=== PATIENT | female | born 1945 | race Caucasian/White ===

== ENCOUNTER 2016-12-10 08:50 | Emergency (ER) | payer MEDICARE, OTHER ==
[2016-12-10 08:59] VITALS: BP 121/70
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
--- NOTE | 2016-12-10 09:44 | XRAY Preliminary Report ---
Exam: XR Knee 4 View LT IMPRESSION: 1. No fracture or dislocation 2. Severe tricompartmental osteoarthritis. Kellgren Renzo Grade 4. 3. Small effusion Kellgren and Renzo classification of osteoarthritis: Grade 0: no radiographic features of osteoarthritis are present Grade 1: doubtful joint space narrowing (JSN) and possible osteophytic lipping Grade 2: definite osteophytes and possible JSN on anteroposterior weight-bearing radiograph Grade 3: multiple osteophytes, definite JSN, sclerosis, possible bony deformity Grade 4: large osteophytes, marked JSN, severe sclerosis and definite bony deformity [facility] SITE ID: [id number]
--- NOTE | 2016-12-10 09:47 | XRAY Report ---
EXAM: LEFT KNEE RADIOGRAPHY EXAM DATE: 12/10/2016 09:33 AM. CLINICAL HISTORY: Fall medial tibial pain. COMPARISON: None. TECHNIQUE: 4 views. FINDINGS: Bones: Osteopenia. No fractures or bone lesions. Joints: Severe tricompartmental osteoarthritis with joint space loss and osteophytosis. Small effusio n. Soft Tissues: Normal. No soft tissue swelling. IMPRESSION: 1. No fracture or dislocation 2. Severe tricompartmental osteoarthritis. Kellgren Renzo Grade 4. 3. Small effusion Kellgren and Renzo classification of osteoarthritis: Grade 0: no radiographic features of osteoarthritis are present Grade 1: doubtful joint space narrowing (JSN) and possible osteophytic lipping Grade 2: definite osteophytes and possible JSN on anteroposterior weight-bearing radiograph Grade 3: multiple osteophytes, definite JSN, sclerosis, possible bony deformity Grade 4: large osteophytes, marked JSN, severe sclerosis and definite bony deformity [facility] Referring Provider Line: [phone] SITE ID: [id number]
== END 2016-12-10 10:06 | disposition home or self-care (01) ==
LOC: ED 08:50
DX: S80.02XA Contusion of left knee, initial encounter (principal); W17.89XA Other fall from one level to another, initial encounter; Y92.318 Other athletic court as the place of occurrence of the external cause; M17.12 Unilateral primary osteoarthritis, left knee
CPT/HCPCS: 99281; 99283

== ENCOUNTER 2018-10-11 09:59 | Outpatient (CLI) | payer MEDICARE, OTHER ==
[2018-10-11 10:24] LABS: BASOPHILS # (AUTO) 0.1 10^3/uL (0.0-0.1); EOSINOPHILS # (AUTO) 0.2 10^3/uL (0.0-0.7); EOSINOPHILS % (AUTO) 2.9 %; HGB - HEMOGLOBIN 13.5 g/dL (12.0-16.0); LYMPHOCYTES # (AUTO) 2.1 10^3/uL (1.5-3.5); LYMPHOCYTES % (AUTO) 33.8 %; MEAN CORPUSCULAR HEMOGLOBIN 27.1 pg (27.0-31.0); MEAN CORPUSCULAR HGB CONC 31.6 g/dL (32.0-36.0); MEAN CORPUSCULAR VOLUME 85.7 fL (81.0-99.0); MONOCYTES # (AUTO) 0.5 10^3/uL (0.0-1.0); MONOCYTES % (AUTO) 8.3 %; NEUTROPHILS # (AUTO) 3.3 10^3/uL (1.5-6.6); NEUTROPHILS % (AUTO) 53.3 %; PLT - PLATELET COUNT 331 10^3/uL (130-450); RED BLOOD COUNT 4.98 10^6/uL (4.20-5.40); RED CELL DISTRIBUTION WIDTH 14.1 % (12.0-15.0); WHITE BLOOD COUNT 6.2 x10^3/uL (4.8-10.8)
[2018-10-11 10:40] LABS: ALBUMIN 4.4 g/dL (3.2-5.5); ALBUMIN/GLOBULIN RATIO 1.7 (1.0-2.2); ALKALINE PHOSPHATASE 80 IU/L (42-121); ALT ALANINE AMINOTRANSFERASE 20 IU/L (10-60); AST ASPARTATE AMINOTRANSFERASE 21 IU/L (10-42); BILIRUBIN,TOTAL 0.8 mg/dL (0.2-1.0); BUN - BLOOD UREA NITROGEN 16 mg/dL (6-20); CALCIUM 9.8 mg/dL (8.5-10.3); CARBON DIOXIDE - CO2 29 mmol/L (21-32); CHLORIDE 102 mmol/L (101-111); CHOLESTEROL 282 mg/dL; CREATININE 0.8 mg/dL (0.4-1.0); GFR - MDRD 71 (>89); GLUCOSE 102 mg/dL (70-100); HDL CHOLESTEROL 47 mg/dL; LDL CHOLESTEROL,CALCULATED 200 mg/dL; LDL/HDL RATIO 4.3 (<4.4); SODIUM 139 mmol/L (135-145); VLDL CHOLESTEROL 35 mg/dL
== END 2018-10-11 10:00 | disposition home or self-care (01) ==
LOC: LAB 09:59
PROVIDERS: ATTEND Family Medicine
DX: E78.5 Hyperlipidemia, unspecified (principal); I49.1 Atrial premature depolarization
CPT/HCPCS: 36415; 80053; 80061; 83721; 84443; 85025

== ENCOUNTER 2019-08-09 10:00 | Outpatient (CLI) | payer MEDICARE, OTHER | END 2019-08-09 23:59 | disposition home or self-care (01) | LOC: LAB.R 10:00 | PROVIDERS: ATTEND Family Medicine | DX: R35.0 Frequency of micturition (principal) | CPT/HCPCS: 87086; 87181 ==

== ENCOUNTER 2019-09-03 09:42 | Outpatient (CLI) | payer MEDICARE, OTHER ==
[2019-09-03 12:26] LABS: BASOPHILS # (AUTO) 0.1 10^3/uL (0.0-0.1); BASOPHILS % (AUTO) 1.2 %; EOSINOPHILS # (AUTO) 0.2 10^3/uL (0.0-0.7); EOSINOPHILS % (AUTO) 2.9 %; HGB - HEMOGLOBIN 14.2 g/dL (12.0-16.0); LYMPHOCYTES # (AUTO) 1.9 10^3/uL (1.5-3.5); LYMPHOCYTES % (AUTO) 33.7 %; MEAN CORPUSCULAR HEMOGLOBIN 28.6 pg (27.0-31.0); MEAN CORPUSCULAR HGB CONC 32.3 g/dL (32.0-36.0); MEAN CORPUSCULAR VOLUME 88.3 fL (81.0-99.0); MONOCYTES # (AUTO) 0.4 10^3/uL (0.0-1.0); MONOCYTES % (AUTO) 7.5 %; NEUTROPHILS # (AUTO) 3.1 10^3/uL (1.5-6.6); NEUTROPHILS % (AUTO) 54.3 %; PLT - PLATELET COUNT 324 10^3/uL (130-450); RED BLOOD COUNT 4.97 10^6/uL (4.20-5.40); RED CELL DISTRIBUTION WIDTH 13.7 % (12.0-15.0); WHITE BLOOD COUNT 5.6 x10^3/uL (4.8-10.8)
[2019-09-03 12:48] LABS: HB2 TOTAL 14.3 g/dL; HEMOGLOBIN A1C 0.57 g/dL; HEMOGLOBIN A1C % 5.8 % (4.6-6.2)
[2019-09-03 12:53] LABS: ALBUMIN 4.4 g/dL (3.2-5.5); ALKALINE PHOSPHATASE 81 IU/L (42-121); ALT ALANINE AMINOTRANSFERASE 21 IU/L (10-60); AST ASPARTATE AMINOTRANSFERASE 22 IU/L (10-42); BILIRUBIN,TOTAL 0.8 mg/dL (0.2-1.0); BUN - BLOOD UREA NITROGEN 18 mg/dL (6-20); CALCIUM 9.9 mg/dL (8.5-10.3); CARBON DIOXIDE - CO2 28 mmol/L (21-32); CHLORIDE 101 mmol/L (101-111); CHOL/HDL RATIO 5.5 (<4.4); CHOLESTEROL 290 mg/dL; CREATININE 0.8 mg/dL (0.4-1.0); GLUCOSE 106 mg/dL (70-100); HDL CHOLESTEROL 53 mg/dL; LDL CHOLESTEROL,CALCULATED 211 mg/dL; SODIUM 141 mmol/L (135-145); TOTAL PROTEIN 6.6 g/dL (6.7-8.2); VLDL CHOLESTEROL 26 mg/dL
== END 2019-09-03 23:59 | disposition home or self-care (01) ==
LOC: LAB.WCP 09:42
PROVIDERS: ATTEND Family Medicine
DX: R73.9 Hyperglycemia, unspecified (principal); E78.5 Hyperlipidemia, unspecified; R35.0 Frequency of micturition; I49.1 Atrial premature depolarization
CPT/HCPCS: 36415; 80053; 80061; 83036; 83721; 84443; 85025; 87086

== ENCOUNTER 2020-07-04 08:00 | Outpatient (CLI) | payer MEDICARE, OTHER ==
[2020-07-04 13:05] LABS: BASOPHILS # (AUTO) 0.1 10^3/uL (0.0-0.1); BASOPHILS % (AUTO) 0.8 %; EOSINOPHILS # (AUTO) 0.2 10^3/uL (0.0-0.7); HCT - HEMATOCRIT 44.5 % (37.0-47.0); HGB - HEMOGLOBIN 13.9 g/dL (12.0-16.0); LYMPHOCYTES # (AUTO) 1.9 10^3/uL (1.5-3.5); LYMPHOCYTES % (AUTO) 30.5 %; MEAN CORPUSCULAR HGB CONC 31.2 g/dL (32.0-36.0); MEAN CORPUSCULAR VOLUME 89.5 fL (81.0-99.0); MEAN PLATELET VOLUME 9.6 fL (7.9-10.8); MONOCYTES # (AUTO) 0.6 10^3/uL (0.0-1.0); MONOCYTES % (AUTO) 9.3 %; NEUTROPHILS # (AUTO) 3.5 10^3/uL (1.5-6.6); NEUTROPHILS % (AUTO) 55.9 %; PLT - PLATELET COUNT 333 10^3/uL (130-450); RED BLOOD COUNT 4.97 10^6/uL (4.20-5.40); RED CELL DISTRIBUTION WIDTH 13.6 % (12.0-15.0); WHITE BLOOD COUNT 6.3 x10^3/uL (4.8-10.8)
[2020-07-04 13:28] LABS: ALBUMIN 4.2 g/dL (3.2-5.5); ALBUMIN/GLOBULIN RATIO 1.8 (1.0-2.2); ALKALINE PHOSPHATASE 75 IU/L (42-121); ALT ALANINE AMINOTRANSFERASE 23 IU/L (10-60); AST ASPARTATE AMINOTRANSFERASE 24 IU/L (10-42); BILIRUBIN,TOTAL 0.7 mg/dL (0.2-1.0); BUN - BLOOD UREA NITROGEN 16 mg/dL (6-20); CALCIUM 9.6 mg/dL (8.5-10.3); CARBON DIOXIDE - CO2 27 mmol/L (21-32); CHLORIDE 107 mmol/L (101-111); CHOLESTEROL 204 mg/dL; CREATININE 0.8 mg/dL (0.4-1.0); GFR - MDRD 70 (>89); GLUCOSE 109 mg/dL (70-100); HDL CHOLESTEROL 51 mg/dL; LDL CHOLESTEROL,CALCULATED 133 mg/dL; LDL/HDL RATIO 2.6 (<4.4); SODIUM 142 mmol/L (135-145); TOTAL PROTEIN 6.5 g/dL (6.7-8.2); TRIGLYCERIDES 101 mg/dL; VLDL CHOLESTEROL 20 mg/dL
[2020-07-04 13:29] LABS: THYROID STIMULATING HORMONE 1.48 uIU/mL (0.34-5.60)
[2020-07-04 13:31] LABS: ESTIMATED AVERAGE GLUCOSE 131 mg/dL (70-100); HEMOGLOBIN A1c% 6.2 % (4.27-6.07)
== END 2020-07-04 23:59 | disposition home or self-care (01) ==
LOC: LAB.WCP 08:00
PROVIDERS: ATTEND Family Medicine
DX: E78.49 Other hyperlipidemia (principal); R73.9 Hyperglycemia, unspecified; I49.1 Atrial premature depolarization
CPT/HCPCS: 36415; 80053; 80061; 83036; 83721; 84443; 85025

== ENCOUNTER 2020-07-09 08:00 | Outpatient (CLI) | payer MEDICARE, OTHER | END 2020-07-09 23:59 | disposition home or self-care (01) | LOC: LAB.WCP 08:00 | PROVIDERS: ATTEND Family Medicine | DX: R35.0 Frequency of micturition (principal) | CPT/HCPCS: 87086 ==

== ENCOUNTER 2020-09-13 09:39 | Emergency (ER) | payer MEDICARE, OTHER ==
[2020-09-13] MEDS ORDERED: KETOROLAC 60 MG/2 ML VIAL IM STA (10:21)
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
--- NOTE | 2020-09-13 11:53 | XRAY Report ---
PROCEDURE: Shoulder 3 View RT INDICATIONS: fall proximal humerus pain TECHNIQUE: 3 views of the shoulder were acquired. COMPARISON: None. FINDINGS: Bones: Comminuted, displaced fracture of the humeral head and neck extending to the articular surface with associated pseudosubluxation. No suspicious bony lesions. Visualized ribs appear intact. Soft tissues: No suspicious soft tissue calcifications. Pseudosubluxation secondary to shoulder comfort nt effusion. IMPRESSION: Comminuted, displaced fracture of the humeral head and neck with associated shoulder comfort nt effusion. Reviewed by: Stephan Heredia MD on 09/13/2020 10:51 AM ESTEE Approved by: Stephan Heredia MD on 09/13/2020 10:51 AM ESTEE Station ID: [id number]
--- NOTE | 2020-09-13 11:54 | XRAY Report ---
PROCEDURE: Humerus RT INDICATIONS: fall proximal pain TECHNIQUE: 2 views of the humerus were acquired. COMPARISON: Right shoulder from the same date FINDINGS: Bones: Comminuted displaced fracture of the humeral head and neck. No distal humeral fractures. No la spicious bony lesions. Soft tissues: No suspicious soft tissue calcifications. IMPRESSION: Comminuted, displaced fracture of the humeral head and neck. Reviewed by: Stephan Heredia MD on 09/13/2020 10:52 AM ESTEE Approved by: Stephan Heredia MD on 09/13/2020 10:52 AM ESTEE Station ID: [id number]
[2020-09-13 12:13] VITALS: BP 144/60
== END 2020-09-13 12:37 | disposition home or self-care (01) ==
LOC: ED 09:39
DX: S42.291A Other displaced fracture of upper end of right humerus, initial encounter for closed fracture (principal); V19.88XA Pedal cyclist (driver) (passenger) injured in other specified transport accidents, initial encounter; Y93.55 Activity, bike riding; Y92.008 Other place in unspecified non-institutional (private) residence as the place of occurrence of the external cause
CPT/HCPCS: 96372; 99283; 99284

== ENCOUNTER 2021-08-29 09:17 | Emergency (ER) | payer MEDICARE, OTHER ==
[2021-08-29 09:28] VITALS: BP 112/64
--- NOTE | 2021-08-29 09:48 | ED Physician Documentation ---
PD HPI LOWER EXT INJURY - Stated complaint Stated Complaint: LT HIP PX - Chief complaint Chief Complaint: Ext Problem - History obtained from History obtained from: Patient - History of Present Illness PD HPI LOW EXT INJURY LOCATION: Left, Hip Type of injury: Twist (playing golf) [place] occurred: [place] Timing - onset: How many days ago (3) Timing - duration: Days (3) Timing - details: Gradual onset, Still present Improved by: Rest Worsened by: Moving, Palpating, Other (weight bearing) Associated symptoms: No: Weakness, Numbness, Tingling, Swelling, Discolored Similar symptoms before: Diagnosis (stress fracture of hip seen on CT in [place]) Recently seen: Not recently seen - Additional information Additional information: Pat Tiwari is a 75-year-old female who plays golf regularly especially when she is down in [place]. About a year ago year and a half ago she developed some pain in her hip and was diagnosed with a stress fracture to the hip and she laid off golf for a while it where is it improved and she is returned to playing golf she played golf all winter this year when she returned to [facility] she went out golfing and found that she developed the same pain she had previously. She has come here today for evaluation. She has a tournament she wants to do in 2 weeks and she is not wanting to do that now because of this pain. She does not feel she needs pain medication. She is able to ambulate without much of a limp. Review of Systems Constitutional: denies: Fever Ears: denies: Ear pain Nose: denies: Congestion Throat: denies: Sore throat Respiratory: denies: Cough GI: denies: Vomiting, Diarrhea : denies: Dysuria, Frequency PD PAST MEDICAL HISTORY - Past Medical History Past Medical History: Yes Cardiovascular: High cholesterol Respiratory: None Neuro: None Endocrine/Autoimmune: None GI: None LAYOUT MAN: None : None HEENT: None Psych: None Musculoskeletal: None Derm: None Other Past Medical History: stress fracture left hip - Past Surgical History Past Surgical History: Yes General: Appendectomy Ortho: Arthroscopic surgery /LAYOUT MAN: section - Present Medications Home Medications: Ambulatory Orders Medication Instructions Recorded Confirmed Rosuvastatin Calcium [Crestor] 5 mg PO DAILY 08/29/21 08/29/21 - Allergies Allergies/Adverse Reactions: Allergies Allergy/AdvReac Type Severity Reaction Status Date / Time No Known Drug Allergies Allergy Verified 08/29/21 09:33 - Social History Does the pt smoke?: No Smoking Status: Never smoker Does the pt drink ETOH?: Yes Does the pt have substance abuse?: No - Immunizations Immunizations are current?: Yes PD ED PE NORMAL - Vitals Vital signs reviewed: Yes (normal ) - General General: Alert and oriented X 3, No acute distress, Well developed/nourished - HEENT HEENT: Atraumatic, PERRL, EOMI - Respiratory Respiratory: No respiratory distress - Back Back: No CVA TTP, No spinal TTP - Derm Derm: Normal color, Warm and dry, No rash - Extremities Extremities: No deformity, No tenderness to palpate, Normal ROM s pain, No edema - Neuro Neuro: Alert and oriented X 3, buncher operator 2-12 intact, No motor deficit, No sensory deficit, Normal speech Eye Opening: Spontaneous Motor: Obeys Commands Verbal: Oriented GCS Score: 15 - Psych Psych: Normal mood, Normal affect Results - Vitals Vitals: Vital Signs - 24 hr 08/29/21 09:25 Temperature 36.5 C Heart Rate 79 Respiratory 16 Rate Blood Pressure 112/64 O2 Saturation 98 Oxygen O2 Source Room air - Rads (name of study) CT hip Radiology: Prelim report reviewed (Impression: 1. Left hip degenerative osteoarthritis without evidence of fracture or dislocation.), EMP read indepedently, See rad report PD MEDICAL DECISION MAKING - ED course Complexity details: reviewed results, re-evaluated patient, considered differential, d/w patient ED course: 75-year-old female with osteoarthritis of the left hip has had an increase in her pain playing golf she does look like she has some previously fractured fragments along the acetabulum and I suspect she has alan these loose playing golf again. I have shared this with the patient and have asked her to follow-up with the orthopedic surgeon.She declines pain medication. Departure - Departure Disposition: 01 Home, Self Care Clinical Impression: Osteoarthritis of left hip Qualifiers: Osteoarthritis type: post-traumatic Qualified Code(s): M16.52 - Unilateral post-traumatic osteoarthritis, left hip Condition: Stable Instructions: Osteoarthritis Other Tx, ED Degenerative Joint Disease Follow-Up: Gauri Nesbitt ARNP [Primary Care Provider] - Armin Andrea MD [Provider Admit Priv/Credential] - Comments: Pat today looks like you have some arthritis to your left hip. You may have pain with golfing that can last for days or weeks. Follow up with the orthopedic doctor for consultation of possible surgical repair. Discharge Date/Time: 08/29/21 11:17
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
== END 2021-08-29 11:17 | disposition home or self-care (01) ==
LOC: ED 09:17
DX: M16.52 Unilateral post-traumatic osteoarthritis, left hip (principal)
CPT/HCPCS: 99283; 99284

== ENCOUNTER 2022-08-26 10:52 | Emergency (ER) | payer MEDICARE, OTHER ==
--- NOTE | 2022-08-26 11:30 | XRAY Report ---
PROCEDURE: Chest 1 View X-Ray INDICATIONS: cough TECHNIQUE: One view of the chest was acquired. COMPARISON: Chest x-ray 08/20/2015 FINDINGS: Surgical changes and devices: None. Lungs and pleura: Peripheral left upper lobe opacity is present with appearance of air bronchograms. Mediastinum: Mediastinal contours appear normal. Heart size is normal. Bones and chest wall: No suspicious bony lesions. Overlying soft tissues appear unremarkable. Def ormity of the right humeral head is present consistent with remote fracture. IMPRESSION: Left upper lobe opacity with appearance of air bronchograms suggestive of pneumonia. However, if clin ical correlation is not in alignment with infection/inflammation, mass lesion of other etiologies inc luding malignancy should be considered with CT for follow-up. Otherwise, recommend chest x-ray follow -up after appropriate therapy to document resolution. Reviewed by: Danika Gonzalez MD on 08/26/2022 11:29 AM PDT Approved by: Danika Gonzalez MD on 08/26/2022 11:29 AM PDT Station ID: [id number]
--- NOTE | 2022-08-26 11:31 | ED Physician Documentation ---
PD HPI CHEST PAIN - Stated complaint Stated Complaint: DIZZINESS - Chief complaint Chief Complaint: Fever - History obtained from History obtained from: Patient, Family - History of Present Illness Timing - onset: How many days ago (3) Timing - onset during: Rest Timing - duration: Days (3) Timing - details: Gradual onset, Still present Quality: Dull, Pain Location: Left chest Improved by: Rest Worsened by: Inspiration Associated symptoms: Feeling faint / dizzy, Cough. No: Shortness of air, Diaphoresis, Nausea, Vomiting, General Weakness, Palpitations Similar symptoms before: Has not had sx before Recently seen: Not recently seen - Additional information Additional information: 76-year-old Pat Tiwari presents to the emergency department with the pain up near her shoulder that is worse if she takes a deep breath or palpates the area. She has not had this previously. She feels a bit rundown. She has a slight cough no fever but she has had chills she is brought here today by her daughter. Review of Systems Constitutional: reports: Chills. denies: Fever Eyes: denies: Decreased vision Ears: denies: Ear pain Nose: reports: Rhinorrhea / runny nose, Congestion Throat: denies: Sore throat Cardiac: reports: Chest pain / pressure. denies: Palpitations Respiratory: reports: Cough. denies: Dyspnea, Hemoptysis, Wheezing GI: denies: Abdominal Pain, Nausea, Vomiting, Constipation, Diarrhea : denies: Dysuria, Frequency Skin: denies: Rash Musculoskeletal: denies: Neck pain, Back pain, Extremity pain Neurologic: denies: Generalized weakness, Focal weakness, Numbness PD PAST MEDICAL HISTORY - Past Medical History Past Medical History: Yes Cardiovascular: High cholesterol Respiratory: None Neuro: None Endocrine/Autoimmune: None GI: None FOUNDING PARTNER: None : None HEENT: None Psych: None Musculoskeletal: None Derm: None - Past Surgical History Past Surgical History: Yes General: Appendectomy Ortho: Arthroscopic surgery /FOUNDING PARTNER: section - Present Medications Home Medications: Ambulatory Orders Medication Instructions Recorded Confirmed Rosuvastatin Calcium [Crestor] 5 mg PO DAILY 08/29/21 09/23/21 HYDROcod/ACETAM 5/325 [[place] 5/325] 1 - 2 tab PO Q6H PRN #15 tablet 09/23/21 Ibuprofen [Motrin] 800 mg PO DAILY 09/23/21 09/23/21 Amox/Clav 875/125 [Augmentin] 1 each PO Q12H #20 tablet 08/26/22 Azithromycin [Zithromax] 250 mg PO DAILY #6 tablet 08/26/22 - Allergies Allergies/Adverse Reactions: Allergies Allergy/AdvReac Type Severity Reaction Status Date / Time No Known Drug Allergies Allergy Verified 08/26/22 11:04 - Social History Does the pt smoke?: No Smoking Status: Never smoker Does the pt drink ETOH?: Yes Does the pt have substance abuse?: No - Immunizations Immunizations are current?: Yes PD ED PE NORMAL - Vitals Vital signs reviewed: Yes (wide pulse pressure) - General General: Alert and oriented X 3, No acute distress, Well developed/nourished - HEENT HEENT: Atraumatic, PERRL, EOMI, Ears normal, Moist mucous membranes, Pharynx benign - Neck Neck: Supple, no meningeal sign, No bony TTP - Cardiac Cardiac: RRR, No murmur - Respiratory Respiratory: No respiratory distress, Other (subtle rhonchi in left upper lobe only) - Abdomen Abdomen: Soft, Non tender - Back Back: No CVA TTP, No spinal TTP - Derm Derm: Normal color, Warm and dry, No rash - Extremities Extremities: No deformity, No edema - Neuro Neuro: Alert and oriented X 3, child and adolescent psychiatrist 2-12 intact, No motor deficit, No sensory deficit, Normal speech Eye Opening: Spontaneous Motor: Obeys Commands Verbal: Oriented GCS Score: 15 - Psych Psych: Normal mood, Normal affect Results - Vitals Vitals: Vital Signs - 24 hr 08/26/22 08/26/22 11:00 13:10 Temperature 37.4 C 37.3 C Heart Rate 93 88 Respiratory 23 21 Rate Blood Pressure 125/59 L 115/59 L O2 Saturation 94 95 Oxygen O2 Source Room air - Labs Labs: Laboratory Tests 08/26/22 08/26/22 08/26/22 11:40 11:40 11:40 WBC 14.5 H RBC 4.17 L Hgb 11.7 L Hct 35.2 L MCV 84.4 MCH 28.1 MCHC 33.2 RDW 12.4 Plt Count 332 MPV 9.2 Neut # (Auto) 12.2 H Lymph # (Auto) 1.0 L Walsh # (Auto) 1.1 H Eos # (Auto) 0.1 Baso # (Auto) 0.1 Absolute Nucleated RBC 0.00 Nucleated RBC % 0.0 Sodium 130 L Potassium 4.1 Chloride 99 L Carbon Dioxide 22 Anion Gap 9.0 BUN 21 H Creatinine 0.9 Estimated GFR (MDRD) 61 L Glucose 152 H Lactic Acid 1.1 Calcium 9.0 Total Bilirubin 0.9 AST 23 ALT 16 Alkaline Phosphatase 66 Total Protein 7.0 Albumin 3.4 Globulin 3.6 Albumin/Globulin Ratio 0.9 L Lipase 26 - Rads (name of study) chest Relevant Findings:: Prelim report reviewed (Impression: Left upper lobe opacity with appearance of air bronchograms suggestive of pneumonia. However, if clinical correlation is not in alignment with the infection/inflammation, mass lesion of other etiologies including malignancy should be considered with follow-up CT scan otherwise, recommen), EMP independent interpretation of test PD Medical Decision Making - ED course Complexity details: reviewed results, re-evaluated patient, considered differential, d/w patient, d/w family Reviewed Lab Results: We reviewed a complete blood count showing a white blood cell count elevated at 14.5 thousand hemoglobin and hematocrit were mildly depressed at 11.7 and 35.2 these numbers are both down from patient's previous 2 years ago with a hemoglobin of 13.9 and hematocrit of 44.5 patient's electrolytes show a low sodium BUN is elevated 21 liver function is normal lactate is 1.1 chest x-ray was reviewed showing a left upper lobe infiltrate consistent with where the patient has pain and rhonchi My interpretation of these laboratory results indicate an infection and the physical exam findings correlate with the findings on chest x-ray. The x-ray appearance is somewhat atypical and will require follow-up. ED course: The patient is treated for pneumonia with an IM injection of Rocephin and we will place her on a course of azithromycin and Augmentin. Departure - Departure Disposition: 01 Home, Self Care Clinical Impression: Pneumonia Qualifiers: Pneumonia type: due to unspecified organism Laterality: left Lung location: upper lobe of lung Qualified Code(s): J18.9 - Pneumonia, unspecified organism Condition: Stable Instructions: ED Pneumonia Adult Follow-Up: Gauri Nesbitt ARNP [Primary Care Provider] - Prescriptions: Amox/Clav 875/125 [Augmentin] 1 each PO Q12H #20 tablet Azithromycin [Zithromax] 250 mg PO DAILY #6 tablet Comments: Pat, today looks like the pain you are having in your left shoulder is related to a pneumonia. We have been on treatment today with ceftriaxone which is a powerful antibiotic you are given by vein. My recommendation is to take both azithromycin and Augmentin and I have E scribed these 2 antibiotics to the community pharmacy here in [place]. Our expectation with treatment is slow and steady improvement in your energy level, improvement in the shoulder pain and resolution of your cough. My recommendation is to reduce your level of activity for at least 1 week. When you regain your strength resume your normal activities. The radiologist has recommended a follow-up chest x-ray to assure resolution of the findings on chest x-ray. Follow-up with your primary care doctor for an x-ray within the month. Discharge Date/Time: 08/26/22 13:10
[2022-08-26] MEDS ORDERED: cefTRIAXone 1 GM in SODIUM CHLORIDE 0.9% MINIBAG 100 ML IV STA (11:32)
[2022-08-26 11:48] LABS: BASOPHILS # (AUTO) 0.1 10^3/uL (0.0-0.1); BASOPHILS % (AUTO) 0.5 %; EOSINOPHILS # (AUTO) 0.1 10^3/uL (0.0-0.7); EOSINOPHILS % (AUTO) 0.6 %; HCT - HEMATOCRIT 35.2 % (37.0-47.0); HGB - HEMOGLOBIN 11.7 g/dL (12.0-16.0); MEAN CORPUSCULAR HEMOGLOBIN 28.1 pg (27.0-31.0); MEAN CORPUSCULAR HGB CONC 33.2 g/dL (32.0-36.0); MEAN CORPUSCULAR VOLUME 84.4 fL (81.0-99.0); MEAN PLATELET VOLUME 9.2 fL (7.9-10.8); MONOCYTES # (AUTO) 1.1 10^3/uL (0.0-1.0); MONOCYTES % (AUTO) 7.4 %; NEUTROPHILS # (AUTO) 12.2 10^3/uL (1.5-6.6); NEUTROPHILS % (AUTO) 83.9 %; PLT - PLATELET COUNT 332 10^3/uL (130-450); RED BLOOD COUNT 4.17 10^6/uL (4.20-5.40); RED CELL DISTRIBUTION WIDTH 12.4 % (12.0-15.0); WHITE BLOOD COUNT 14.5 x10^3/uL (4.8-10.8)
[2022-08-26 12:06] LABS: ALBUMIN 3.4 g/dL (3.2-5.5); ALBUMIN/GLOBULIN RATIO 0.9 (1.0-2.2); BILIRUBIN,TOTAL 0.9 mg/dL (0.2-1.0); CREATININE 0.9 mg/dL (0.4-1.0); POTASSIUM 4.1 mmol/L (3.5-5.0)
[2022-08-26 13:14] VITALS: BP 115/59
== END 2022-08-26 13:10 | disposition home or self-care (01) ==
LOC: ED 10:52
DX: J18.9 Pneumonia, unspecified organism (principal)
CPT/HCPCS: 36415; 80053; 83605; 83690; 85025; 87040; 96365; 99284

== ENCOUNTER 2022-09-09 06:51 | Outpatient (CLI) | payer MEDICARE, OTHER ==
--- NOTE | 2022-09-09 08:53 | XRAY Report ---
PROCEDURE: Chest 2 View X-Ray INDICATIONS: CHEST XRAY,ABNORMAL/PNEUMONIA TECHNIQUE: 2 views of the chest were acquired. COMPARISON: None. FINDINGS: Surgical changes and devices: None. Lungs and pleura: No pleural effusions or pneumothorax. Masslike consolidation in left upper to midl sally field is again seen and decreased in size compared to previous study. No new area of abnormal air space opacity is seen. Mediastinum: Mediastinal contours appear normal. Heart size is normal. Bones and chest wall: No suspicious bony lesions. Overlying soft tissues appear unremarkable. IMPRESSION: Finding is suggestive of resolving left upper lobe infiltrate. Continued follow-up until resolution i s recommended. Reviewed by: Eliezer Costa MD on 09/09/2022 8:51 AM PDT Approved by: Eliezer Costa MD on 09/09/2022 8:51 AM PDT Station ID: [id number]
== END 2022-09-09 06:52 | disposition home or self-care (01) ==
LOC: DI 06:51
PROVIDERS: ATTEND Nurse Practitioner Family
DX: R91.8 Other nonspecific abnormal finding of lung field (principal); J18.9 Pneumonia, unspecified organism

== ENCOUNTER 2022-12-13 08:10 | Outpatient (CLI) | payer MEDICARE, OTHER ==
[2022-12-13 08:28] LABS: BASOPHILS # (AUTO) 0.1 10^3/uL (0.0-0.1); BASOPHILS % (AUTO) 1.1 %; EOSINOPHILS # (AUTO) 0.2 10^3/uL (0.0-0.7); EOSINOPHILS % (AUTO) 3.6 %; HCT - HEMATOCRIT 43.2 % (37.0-47.0); HGB - HEMOGLOBIN 13.9 g/dL (12.0-16.0); LYMPHOCYTES # (AUTO) 1.8 10^3/uL (1.5-3.5); LYMPHOCYTES % (AUTO) 32.7 %; MEAN CORPUSCULAR HGB CONC 32.2 g/dL (32.0-36.0); MEAN CORPUSCULAR VOLUME 86.9 fL (81.0-99.0); MEAN PLATELET VOLUME 9.2 fL (7.9-10.8); MONOCYTES # (AUTO) 0.5 10^3/uL (0.0-1.0); MONOCYTES % (AUTO) 8.4 %; NEUTROPHILS % (AUTO) 53.8 %; PLT - PLATELET COUNT 279 10^3/uL (130-450); RED BLOOD COUNT 4.97 10^6/uL (4.20-5.40); RED CELL DISTRIBUTION WIDTH 13.3 % (12.0-15.0); WHITE BLOOD COUNT 5.6 x10^3/uL (4.8-10.8)
[2022-12-13 08:47] LABS: ALBUMIN 4.5 g/dL (3.2-5.5); ALBUMIN/GLOBULIN RATIO 2.3 (1.0-2.2); ALKALINE PHOSPHATASE 66 IU/L (42-121); ALT ALANINE AMINOTRANSFERASE 21 IU/L (10-60); AST ASPARTATE AMINOTRANSFERASE 21 IU/L (10-42); BILIRUBIN,TOTAL 0.8 mg/dL (0.2-1.0); BUN - BLOOD UREA NITROGEN 19 mg/dL (6-20); CALCIUM 9.9 mg/dL (8.5-10.3); CARBON DIOXIDE - CO2 31 mmol/L (21-32); CHLORIDE 104 mmol/L (101-111); CHOL/HDL RATIO 4.9 (<4.4); CHOLESTEROL 210 mg/dL; CREATININE 0.9 mg/dL (0.6-1.3); GFR - MDRD 61 (>89); GLUCOSE 128 mg/dL (74-104); HDL CHOLESTEROL 43 mg/dL; LDL CHOLESTEROL,CALCULATED 131 mg/dL; POTASSIUM 4.1 mmol/L (3.5-4.5); SODIUM 140 mmol/L (135-145); TOTAL PROTEIN 6.5 g/dL (6.4-8.9); TRIGLYCERIDES 182 mg/dL (48-352); VLDL CHOLESTEROL 36 mg/dL
== END 2022-12-13 08:11 | disposition home or self-care (01) ==
LOC: LAB 08:10
PROVIDERS: ATTEND Nurse Practitioner Family
DX: I49.1 Atrial premature depolarization (principal); M81.0 Age-related osteoporosis without current pathological fracture; E78.49 Other hyperlipidemia; E55.9 Vitamin D deficiency, unspecified; Z79.899 Other long term (current) drug therapy
CPT/HCPCS: 36415; 80053; 80061; 82306; 83721; 85025

== ENCOUNTER 2023-09-01 09:49 | Outpatient (CLI) | payer MEDICARE, OTHER ==
--- NOTE | 2023-09-01 16:14 | DEXA Report ---
PROCEDURE: Dexa Spine and/or Hip INDICATIONS: POST MENOPAUSAL TECHNIQUE: Dual energy x-ray absorptiometry (DXA) was performed on a [employer] System. Regions measur ed are the AP Spine, femoral neck, and if needed forearm. COMPARISON: None FINDINGS: Lumbar Spine: Bone Mineral Density: 1.174 g/cm/cm,T score: 0.0. Left Femoral Neck: Bone Mineral Density: 0.773 g/cm/cm, T score: -1.9. Left Hip: Bone Mineral Density: 0.833 g/cm/cm,T score: -1.4. (T score greater or equal to -1.0: NORMAL) (T score from -1.1 to -2.4: OSTEOPENIA) (T score less than or equal to -2.5 to: OSTEOPOROSIS) Impression: By WHO criteria, this patient has low bone density (osteopenia). Patients with diagnosis of osteoporosis or osteopenia should have regular bone mineral density assess ment. For those eligible for Medicare, routine testing is allowed once every 2 years. Testing frequ ency can be increased for patients who have rapidly progressing disease or for those who are receivin g medical therapy to restore bone mass. Reviewed by: Eliezer Costa MD on 09/01/2023 4:13 PM PDT Approved by: Eliezer Costa MD on 09/01/2023 4:13 PM PDT Station ID: [id number]
== END 2023-09-01 09:50 | disposition home or self-care (01) ==
LOC: DI 09:49
PROVIDERS: ATTEND Nurse Practitioner Family
DX: M85.89 Other specified disorders of bone density and structure, multiple sites (principal); Z78.0 Asymptomatic menopausal state

== ENCOUNTER 2023-11-11 11:10 | Emergency (ER) | payer MEDICARE, OTHER ==
--- NOTE | 2023-11-11 11:29 | ED Physician Documentation ---
PD HPI ABD PAIN - Stated complaint Stated Complaint: ABD PX - Chief complaint Chief Complaint: Abd Pain - Additional information Additional information: 77-year-old female with history of appendectomy and multiple C-sections with mild cognitive impairment, daughter is at bedside to help with history and physical. Patient and daughter report that patient has been having abdominal pain on and off for the last 6 weeks last 2 to 3 days it has increased in severity she describes it as a burning sensation to her umbilical region no fevers or chills she says that she still having regular bowel movements no hematemesis no recent illnesses no dark black bowel movements. She says that she is having a hard time noticing if anything makes it better or worse but maybe it gets worse after she eats. Mild underlying nausea no vomiting. No rece nt unintentional weight loss no night sweats PD PAST MEDICAL HISTORY - Past Medical History Cardiovascular: High cholesterol Respiratory: None Neuro: None Endocrine/Autoimmune: None GI: None SENIOR TECHNICAL BUSINESS ANALYST: None : None HEENT: None Psych: None Musculoskeletal: None Derm: None - Past Surgical History Past Surgical History: Yes General: Appendectomy Ortho: Arthroscopic surgery /SENIOR TECHNICAL BUSINESS ANALYST: section - Present Medications Home Medications: Ambulatory Orders Medication Instructions Recorded Confirmed Rosuvastatin Calcium [Crestor] 5 mg PO DAILY 08/29/21 09/23/21 HYDROcod/ACETAM 5/325 [[place] 5/325] 1 - 2 tab PO Q6H PRN #15 tablet 09/23/21 Ibuprofen [Motrin] 800 mg PO DAILY 09/23/21 09/23/21 Amox/Clav 875/125 [Augmentin] 1 each PO Q12H #20 tablet 08/26/22 Azithromycin [Zithromax] 250 mg PO DAILY #6 tablet 08/26/22 Sucralfate [Carafate] 1 gm PO ACHS 10 Days #120 ml 11/11/23 - Allergies Allergies/Adverse Reactions: Allergies Allergy/AdvReac Type Severity Reaction Status Date / Time No Known Drug Allergies Allergy Verified 11/11/23 11:27 - Social History Does the pt smoke?: No Smoking Status: Never smoker Does the pt drink ETOH?: Yes ETOH Use: Wine Does the pt have substance abuse?: No - Immunizations Immunizations are current?: Yes - POLST Patient has POLST: No PD ED PE NORMAL - Vitals Vital signs reviewed: Yes - General General: Alert and oriented X 3, No acute distress, Well developed/nourished - Cardiac Cardiac: RRR - Respiratory Respiratory: No respiratory distress - Abdomen Abdomen: Normal bowel sounds, Soft, Non distended (Generalized abdominal pain specifically around umbilical region), No organomegaly - Back Back: No CVA TTP - Derm Derm: Normal color - Extremities Extremities: No edema - Neuro Neuro: Alert and oriented X 3, 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 2-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, No motor deficit, No sensory deficit, Normal speech Results - Vitals Vitals: Vital Signs - 24 hr 11/11/23 11/11/23 11/11/23 11:19 13:27 14:17 Temperature 36.5 C 36.5 C Heart Rate 64 56 L 66 Respiratory 12 16 19 Rate Blood Pressure 177/68 H 147/65 H 157/65 H O2 Saturation 98 94 97 Oxygen O2 Source Room air - Labs Labs: Laboratory Tests 11/11/23 11/11/23 11/11/23 12:00 12:00 12:15 WBC 8.4 RBC 5.08 Hgb 14.3 Hct 44.2 MCV 87.0 MCH 28.1 MCHC 32.4 RDW 13.2 Plt Count 309 MPV 9.6 Neut # (Auto) 5.3 Lymph # (Auto) 2.0 [place] # (Auto) 0.7 Eos # (Auto) 0.4 Baso # (Auto) 0.1 Absolute Nucleated RBC 0.00 Nucleated RBC % 0.0 Sodium 139 Potassium 4.3 Chloride 102 Carbon Dioxide 30 Anion Gap 7.0 BUN 15 Creatinine 0.8 Estimated GFR (MDRD) 70 L Glucose 107 H Calcium 10.5 H Magnesium 1.9 Total Bilirubin 0.8 AST 19 ALT 16 Alkaline Phosphatase 63 Total Protein 6.4 Albumin 4.4 Globulin 2.0 L Albumin/Globulin Ratio 2.2 Lipase 27 Urine Color YELLOW Urine Clarity CLEAR Urine pH 7.0 Ur Specific [place] 1.010 Urine Protein NEGATIVE Urine Glucose (UA) NEGATIVE Urine Ketones NEGATIVE Urine Occult Blood NEGATIVE Urine Nitrite NEGATIVE Urine Bilirubin NEGATIVE Urine Urobilinogen 0.2 (NORMAL) Ur Leukocyte Esterase SMALL H Urine RBC None Seen Urine WBC 4-5 Ur Squamous Epith Cells RARE Squamous Urine Bacteria Rare Ur Microscopic Review INDICATED Urine Culture Comments INDICATED - Rads (name of study) Abdomen pelvis CT with con Relevant Findings:: Final report received, EMP independent interpretation of test, Other (Mild small bowel wall thickening and calcifications suggestive of enteritis) PD Medical Decision Making - ED course ED course: 77-year-old female presents emergency department for umbilical pain and tenderness. This has been going on now for several months labs are complete for further evaluation she has no leukocytosis no anemia mild hypercalcemia 10.5 most likely due to dehydration scant amount of leukocytes. Urine was sent for cultures. CT abdomen pelvis is complete for further evaluation as to what is causing patient's umbilical pain and tenderness. CT reveals mild small bowel wall thickening and calcification possibly due to enteritis. After GI cocktail patient reports almost complete alleviation of symptoms. She also received 1 L of IV fluids and Zofran. Patient did not have any dysuria no CVA tenderness so very unlikely that patient has urinary tract infection we went ahead and send urine for cultures we have informed the patient that we will call her in a couple days if she needs to be started on antibiotics. Patient was told to follow-up with her primary care provider for colonoscopy endoscopy outpatient for further evaluation of the enteritis. She was also given a prescription of Carafate to help with her burning sensation that she feels after she eats I informed patient to Keep track of the foods that she is eating as well as to see if the Carafate or Maalox is working to help with her GI symptoms and to let her primary care provider and possible GI provider know. Return precautions given patient safe for discharge at this time all questions answered patient was given a CD of her radiology read as well as a copy of the radiology read. All questions answered. Departure - Departure Disposition: 01 Home, Self Care Clinical Impression: Enteritis Instructions: Abdominal Pain, ED Gastroenteritis Non Infec Prescriptions: Sucralfate [Carafate] 1 gm PO ACHS 10 Days #120 ml Comments: Thank you for trusting us with your care. We have completed labs and we are not seeing any acute abnormalities of your labs. Your urinalysis does show a very small amount of leukocytes not entirely indicative of a UTI but we did send your urine to the lab for further cultures we will call you in 2 to 3 days if you need to start antibiotics for this but at this point in time I do not believe it is warranted. Your symptoms seem to significantly improved with a GI cocktail going home you can buy [id number] Maalox and take as directed on the label for the symptoms that you are experiencing. I have also sent a prescription of Carafate to your preferred pharmacy take this 1 hour before meals to see if this helps also with the symptoms you are experiencing. Please follow-up with your primary care provider for a colonoscopy endoscopy and a GI referral for further investigation as to what is causing this enteritis. See below for radiology read. PT NAME: NICOLE CASTILLO MR#: [id number] REG ER/ED AGE: 77 CI DT/TM: 11/11/23 PCP: MIKE Sequeira : 1945 ATT: SEX: F ORD: Jam Monahan MATERIALS TECHNICIAN EXAM: CT/ABPEW (34200) PROCEDURE: Abdomen/Pelvis W INDICATIONS: Generalized umbilical region pain/burning CONTRAST: 100 mm Isovue TECHNIQUE: After the administration of intravenous contrast, a CT scan of the abdomen and pelvis was performed. Images were recorded and evaluated at appropriate window settings. Reformats: coronal and sagittal. For radiation dose reduction, the following was used: automated exposure control, adjustment of mA and/or kV according to patient size. COMPARISON: None. FINDINGS: Image quality: Diagnostic. Lower chest: Unremarkable. Liver: Hepatic steatosis. Gallbladder: No radiopaque stones or wall thickening. Biliary tree: No intrahepatic or extrahepatic dilation, accounting for age. Spleen: No splenomegaly. Pancreas: No pancreatic ductal dilation. Adrenals: No adrenal nodule. Kidneys and ureters: No hydronephrosis. No renal cystic lesion which requires follow up. No solid mass. Stomach, bowel and peritoneum: Mild small bowel wall thickening and wall stratification. No pathologic free fluid. No distention. No significant diverticular disease. Appendix not visualized. Lymph nodes: No central or retroperitoneal adenopathy. Vessels: No infrarenal aortic aneurysm. Patent portal vein. PELVIS Reproductive organs: Unremarkable. Bladder: No abnormal wall thickening, accounting for underdistention. Pelvic lymph nodes: No pelvic adenopathy by size criteria. Bones: No aggressive osseous abnormality. Other: No significant ventral or inguinal hernia. IMPRESSION: Mild small bowel wall thickening and calcification, suggestive of enteritis. Reviewed by: Donovan Ventura MD on 11/11/2023 1:39 PM PDT Approved by: Donovan Ventura MD on 11/11/2023 1:39 PM PDT Station ID: [id number] Report Electronically Signed by Donovan Ventura MD 11/11/23 1335 11/11/23 1339 cc: MIKE Sequeira; Jam Ruff DNP Forms: PCP List Discharge Date/Time: 11/11/23 14:18
[2023-11-11 12:10] LABS: BASOPHILS # (AUTO) 0.1 10^3/uL (0.0-0.1); EOSINOPHILS # (AUTO) 0.4 10^3/uL (0.0-0.7); EOSINOPHILS % (AUTO) 4.2 %; HCT - HEMATOCRIT 44.2 % (37.0-47.0); HGB - HEMOGLOBIN 14.3 g/dL (12.0-16.0); MEAN CORPUSCULAR HEMOGLOBIN 28.1 pg (27.0-31.0); MEAN CORPUSCULAR HGB CONC 32.4 g/dL (32.0-36.0); MEAN PLATELET VOLUME 9.6 fL (7.9-10.8); MONOCYTES # (AUTO) 0.7 10^3/uL (0.0-1.0); MONOCYTES % (AUTO) 7.9 %; NEUTROPHILS # (AUTO) 5.3 10^3/uL (1.5-6.6); NEUTROPHILS % (AUTO) 62.5 %; PLT - PLATELET COUNT 309 10^3/uL (130-450); RED BLOOD COUNT 5.08 10^6/uL (4.20-5.40); RED CELL DISTRIBUTION WIDTH 13.2 % (12.0-15.0); WHITE BLOOD COUNT 8.4 x10^3/uL (4.8-10.8)
[2023-11-11] MEDS: GI COCKTAIL 120 ML BOTTLE PO STA (12:12)
[2023-11-11] MEDS: ONDANSETRON 4 MG/2 ML VIAL IVP STA (12:12)
[2023-11-11] MEDS: SODIUM CHLORIDE 0.9% 1,000 ML IV ONE (12:12)
[2023-11-11 12:22] LABS: BILIRUBIN,URINE NEGATIVE (NEGATIVE); GLUCOSE, URINE (UA) NEGATIVE (NEGATIVE); KETONES,URINE (UA) NEGATIVE (NEGATIVE); LEUKOCYTE ESTERASE, URINE SMALL (NEGATIVE); NITRITE,URINE NEGATIVE (NEGATIVE); OCCULT BLOOD,URINE NEGATIVE (NEGATIVE); PROTEIN,URINE NEGATIVE (NEGATIVE); UROBILINOGEN,URINE 0.2 (NORMAL) E.U./dL (NORMAL)
[2023-11-11 12:30] LABS: ALBUMIN 4.4 g/dL (3.2-5.5); ALBUMIN/GLOBULIN RATIO 2.2 (1.0-2.2); BILIRUBIN,TOTAL 0.8 mg/dL (0.2-1.0); CALCIUM 10.5 mg/dL (8.5-10.3); CREATININE 0.8 mg/dL (0.6-1.3); MAGNESIUM 1.9 mg/dL (1.7-2.3); POTASSIUM 4.3 mmol/L (3.5-4.5); TOTAL PROTEIN 6.4 g/dL (6.4-8.9)
[2023-11-11 12:35] LABS: CLARITY,URINE CLEAR (CLEAR)
[2023-11-11 12:40] LABS: BACTERIA,URINE Rare /HPF (None Seen); RBC,URINE None Seen /HPF (0-5); SQUAMOUS EPITHELIAL CELL,UR RARE Squamous (<= Few)
[2023-11-11] MEDS ORDERED: iohexoL-300 100 ML VIAL ONE (13:03)
--- NOTE | 2023-11-11 13:40 | CT Report ---
PROCEDURE: Abdomen/Pelvis W INDICATIONS: Generalized umbilical region pain/burning CONTRAST: 100 mm Isovue TECHNIQUE: After the administration of intravenous contrast, a CT scan of the abdomen and pelvis was performed. Images were recorded and evaluated at appropriate window settings. Reformats: coronal and sagittal. F or radiation dose reduction, the following was used: automated exposure control, adjustment of mA and /or kV according to patient size. COMPARISON: None. FINDINGS: Image quality: Diagnostic. Lower chest: Unremarkable. Liver: Hepatic steatosis. Gallbladder: No radiopaque stones or wall thickening. Biliary tree: No intrahepatic or extrahepatic dilation, accounting for age. Spleen: No splenomegaly. Pancreas: No pancreatic ductal dilation. Adrenals: No adrenal nodule. Kidneys and ureters: No hydronephrosis. No renal cystic lesion which requires follow up. No solid mas s. Stomach, bowel and peritoneum: Mild small bowel wall thickening and wall stratification. No pathologi c free fluid. No distention. No significant diverticular disease. Appendix not visualized. Lymph nodes: No central or retroperitoneal adenopathy. Vessels: No infrarenal aortic aneurysm. Patent portal vein. PELVIS Reproductive organs: Unremarkable. Bladder: No abnormal wall thickening, accounting for underdistention. Pelvic lymph nodes: No pelvic adenopathy by size criteria. Bones: No aggressive osseous abnormality. Other: No significant ventral or inguinal hernia. IMPRESSION: Mild small bowel wall thickening and calcification, suggestive of enteritis. Reviewed by: Donovan Ventura MD on 11/11/2023 1:39 PM PDT Approved by: Donovan Ventura MD on 11/11/2023 1:39 PM PDT Station ID: [id number]
[2023-11-11 14:22] VITALS: BP 157/65; O2SAT 97
[2023-11-11] MEDS: iohexoL-300 100 ML VIAL IVP ONE (14:52)
== END 2023-11-11 14:18 | disposition home or self-care (01) ==
LOC: ED 11:10
DX: K52.9 Noninfective gastroenteritis and colitis, unspecified (principal)
CPT/HCPCS: 36415; 74177; 80053; 81001; 83690; 83735; 85025; 87086; 96374; 99284; A9270; Q9967; 81003

== ENCOUNTER 2023-12-07 09:21 | Day surgery (SDC) | payer MEDICARE, OTHER ==
[2023-12-07] MEDS: LACTATED RINGERS 1,000 ML IV ONE (09:51)
[2023-12-07] MEDS ORDERED: PROPOFOL 200 MG/20 ML VIAL IVP ONE ×2 (11:13→11:23)
[2023-12-07] MEDS ORDERED: LIDOCAINE-MPF 2% 5 ML VIAL ONE (11:15)
--- NOTE | 2023-12-07 11:16 | ANESTHESIA ---
Pre-Anesthesia VS, & Labs - Diagnosis epigastric pain - Procedure EGD Vital Signs: Temp Pulse Resp BP Pulse Ox O2 Flow Rate 36.5 C 58 L 18 146/81 H 97 12/07/23 09:51 12/07/23 09:51 12/07/23 09:51 12/07/23 09:51 12/07/23 09:51 Height: 5 ft 5 in Weight (kg): 66 kg Body Mass Index: 24.2 BMI Classification: Normal - NPO >8 hours - Is Patient ?: No Home Medications and Allergies Home Medications: Ambulatory Orders Calcium Carbonate/Vitamin D3 [Calcium 250-Vit D3 125 Tablet] 1 each PO DAILY 11/30/23 Donepezil [Aricept] 5 mg PO DAILY 11/30/23 Magnesium Oxide [Magnesium] 500 mg PO DAILY 11/30/23 Sertraline [Zoloft] 50 mg PO DAILY 11/30/23 Ubidecarenone [Coenzyme Q10] 100 mg PO DAILY 11/30/23 Rosuvastatin Calcium [Crestor] 5 mg PO DAILY 08/29/21 Calcium Carbonate/Vitamin D3 [Calcium 250-Vit D3 125 Tablet] 1 each PO DAILY 11/30/23 Donepezil [Aricept] 5 mg PO DAILY 11/30/23 Magnesium Oxide [Magnesium] 500 mg PO DAILY 11/30/23 Sertraline [Zoloft] 50 mg PO DAILY 11/30/23 Ubidecarenone [Coenzyme Q10] 100 mg PO DAILY 11/30/23 Allergies/Adverse Reactions: Allergies Allergy/AdvReac Type Severity Reaction Status Date / Time No Known Drug Allergies Allergy Verified 12/07/23 10:16 Anes History & Medical History - Anesthetic History Anesthesia Complications: reports: No previous complications - Medical History Cardiovascular: reports: None (DENIES CP/CT/SOB... EKG SHOWS OCCASIONAL PAC), High cholesterol Pulmonary: reports: None Gastrointestinal: reports: None Urinary: reports: None Neuro: reports: None, Other (HAS MEMORY ISSUES) Musculoskeletal: reports: Osteopenia Endocrine/Autoimmune: reports: None Blood Disorders: reports: None Skin: reports: None Smoking Status: Never smoker Psychosocial: reports: No issues indicated - Surgical History General: reports: Appendectomy Eyes Ears Nose Throat (EENT): reports: Tonsil/Adenoidectomy Gynecologic: reports: section Orthopedic: reports: Arthroscopic surgery Results - EKG Results EKG Comparison: Reviewed EKG Exam General: Alert Dental: WNL Mouth Openin Fingerbreadth Neck Mobility: Normal Mallampati classification: II Thyromental Distance: 4-6 cm Respiratory: Lungs clear Cardiovascular: Regular rate Plan Anesthesia Type: Total IV Consent for Procedure(s) Verified and Reviewed: Yes Code Status: Attempt Resuscitation ASA classification: 2-Mild systemic disease Is this case an emergency?: No
[2023-12-07] MEDS: LACTATED RINGERS 700 ML IV ONE ×2 (13:02→13:42)
[2023-12-07 13:26] VITALS: BP 127/69; O2SAT 93
--- NOTE | 2023-12-07 13:51 | ANESTHESIA POST OP EVALUATION ---
Anesthesia Post Eval - Post Anesthesia Eval Vitals: Last Vital Signs Temp 36.7 C 12/07/23 13:20 Pulse 74 12/07/23 13:20 Resp 16 12/07/23 13:20 BP 127/69 12/07/23 13:20 Pulse Ox 93 12/07/23 13:20 O2 Flow Rate CV Function Including HR & BP: Stable Pain Control: Satisfactory Nausea & Vomiting: Negative Mental Status: Baseline Respiratory Status: Airway Patent Hydration Status: Satisfactory Anesthesia Complications: None
== END 2023-12-07 09:22 | disposition home or self-care (01) ==
LOC: SDS 09:21
PROVIDERS: ATTEND Surgery
PROC: 0DB78ZX Excision of Stomach, Pylorus, Via Natural or Artificial Opening Endoscopic, Diagnostic (ICD-10-PCS; 2023-12-07)
PROC: 0DB68ZX Excision of Stomach, Via Natural or Artificial Opening Endoscopic, Diagnostic (ICD-10-PCS; 2023-12-07)
PROC: 0DB98ZX Excision of Duodenum, Via Natural or Artificial Opening Endoscopic, Diagnostic (ICD-10-PCS; principal; 2023-12-07 10:30)
DX: K29.50 Unspecified chronic gastritis without bleeding (principal); B96.81 Helicobacter pylori [H. pylori] as the cause of diseases classified elsewhere; K44.9 Diaphragmatic hernia without obstruction or gangrene; R10.13 Epigastric pain
CPT/HCPCS: 43239; J7120